=== PATIENT | female | born 1980 | race African-American/Black ===

== ENCOUNTER → 2019-04-02 | Outpatient (CLI) | payer OTHER ==
[~2019-04-02] VITALS: Ht 167.6 cm; Wt 82.6 kg
== END | disposition home or self-care (01) ==
LOC: ECT 09:53
DX: F33.2 Major depressive disorder, recurrent severe without psychotic features (principal); F39 Unspecified mood [affective] disorder; F34.1 Dysthymic disorder; E03.9 Hypothyroidism, unspecified; I10 Essential (primary) hypertension; Z79.899 Other long term (current) drug therapy; Z81.8 Family history of other mental and behavioral disorders

== ENCOUNTER 2019-04-10 08:56 | Outpatient (RCR) | payer OTHER ==
[~2019-04-10] VITALS: Ht 167.6 cm; Wt 82.6 kg
[2019-04-10] MEDS ORDERED: SUMAtriptan 6mg/0.5ml Inj SUBQ ONE (08:57)
[2019-04-10] MEDS ORDERED: Succinylcholine 20mg/ml 10ml vial ONE (08:57)
[2019-04-10] MEDS ORDERED: NS 500ML ONE (08:57)
[2019-04-10] MEDS ORDERED: Ketorolac 30mg Inj ONE (08:57)
[2019-04-10] MEDS ORDERED: Methohexital Sodium Syr 100mg/10ml IVP ONE (08:57)
[2019-04-10 08:59] VITALS: BP 134/89
[2019-04-10 09:10] VITALS: BP 164/81
[2019-04-10 09:15] VITALS: BP 127/74
[2019-04-10 09:20] VITALS: BP 122/74
[2019-04-10 09:25] VITALS: BP 124/77
[2019-04-10 09:59] VITALS: BP 134/89
[2019-04-13] MEDS ORDERED: SUMAtriptan 6mg/0.5ml Inj SUBQ ONE (06:00)
[2019-04-13] MEDS ORDERED: Succinylcholine 20mg/ml 10ml vial ONE (06:00)
[2019-04-13] MEDS ORDERED: NS 500ML ONE (06:00)
[2019-04-13] MEDS ORDERED: Ketorolac 30mg Inj ONE (06:00)
[2019-04-13] MEDS ORDERED: Methohexital Sodium Syr 100mg/10ml IVP ONE (06:00)
[2019-04-13 10:51] VITALS: BP 147/100
[2019-04-13 11:03] VITALS: BP 185/91
[2019-04-13 11:08] VITALS: BP 164/84
[2019-04-13 11:13] VITALS: BP 159/75
[2019-04-13 11:18] VITALS: BP 141/84
[2019-04-15] MEDS ORDERED: Ketorolac 30mg Inj ONE (06:00)
[2019-04-15] MEDS ORDERED: SUMAtriptan 6mg/0.5ml Inj SUBQ ONE (06:00)
[2019-04-15] MEDS ORDERED: NS 500ML ONE (06:00)
[2019-04-15] MEDS ORDERED: Methohexital Sodium Syr 100mg/10ml IVP ONE (06:00)
[2019-04-15] MEDS ORDERED: Succinylcholine 20mg/ml 10ml vial ONE (06:00)
[2019-04-15 09:39] VITALS: BP 129/87
[2019-04-15 09:50] VITALS: BP 158/88
[2019-04-15 09:55] VITALS: BP 142/65
[2019-04-15 10:00] VITALS: BP 135/83
[2019-04-15 10:05] VITALS: BP 130/75
[2019-04-17] MEDS ORDERED: Ketorolac 60mg Inj IM ONE (06:00)
[2019-04-17] MEDS ORDERED: NS 500ML ONE (06:00)
[2019-04-17] MEDS ORDERED: Succinylcholine 20mg/ml 10ml vial ONE (06:00)
[2019-04-17] MEDS ORDERED: Methohexital Sodium Syr 100mg/10ml IVP ONE (06:00)
[2019-04-17] MEDS ORDERED: SUMAtriptan 6mg/0.5ml Inj SUBQ ONE (06:00)
[2019-04-17 08:56] VITALS: BP 148/100
[2019-04-17 09:09] VITALS: BP 162/85
[2019-04-17 09:14] VITALS: BP 146/92
[2019-04-17 09:19] VITALS: BP 148/64
[2019-04-17 09:24] VITALS: BP 142/87
[2019-04-20] MEDS ORDERED: NS 500ML ONE (09:00)
[2019-04-20] MEDS ORDERED: Ketorolac 60mg Inj IM ONE (09:00)
[2019-04-20] MEDS ORDERED: Methohexital Sodium Syr 100mg/10ml IVP ONE (09:00)
[2019-04-20] MEDS ORDERED: SUMAtriptan 6mg/0.5ml Inj SUBQ ONE (09:00)
[2019-04-20] MEDS ORDERED: Succinylcholine 20mg/ml 10ml vial ONE (09:00)
[2019-04-20 09:07] VITALS: BP 137/92
[2019-04-20 09:19] VITALS: BP 148/74
[2019-04-20 09:24] VITALS: BP 144/82
[2019-04-20 09:29] VITALS: BP 134/85
[2019-04-20 09:34] VITALS: BP 133/78
[2019-04-22 09:01] VITALS: BP 146/97
[2019-04-22 09:12] VITALS: BP 164/85
[2019-04-22 09:17] VITALS: BP 147/92
[2019-04-22 09:22] VITALS: BP 143/77
[2019-04-22 09:27] VITALS: BP 140/82
[2019-04-23] MEDS ORDERED: Ketorolac 60mg Inj IM ONE (09:00)
[2019-04-23] MEDS ORDERED: Succinylcholine 20mg/ml 10ml vial ONE (09:00)
[2019-04-23] MEDS ORDERED: NS 500ML ONE (09:00)
[2019-04-23] MEDS ORDERED: Methohexital Sodium Syr 100mg/10ml IVP ONE (09:00)
[2019-04-23] MEDS ORDERED: SUMAtriptan 6mg/0.5ml Inj SUBQ ONE (09:00)
[2019-04-24 08:51] VITALS: BP 133/82
[2019-04-24 09:02] VITALS: BP 151/83
[2019-04-24 09:07] VITALS: BP 152/80
[2019-04-24 09:12] VITALS: BP 148/82
[2019-04-24 09:17] VITALS: BP 140/78
[2019-04-25] MEDS ORDERED: Ketorolac 60mg Inj IM ONE (21:51)
[2019-04-25] MEDS ORDERED: SUMAtriptan 6mg/0.5ml Inj SUBQ ONE (21:51)
[2019-04-25] MEDS ORDERED: Succinylcholine 20mg/ml 10ml vial ONE (21:51)
[2019-04-25] MEDS ORDERED: Midazolam 2mg/2ml Inj ONE (21:51)
[2019-04-25] MEDS ORDERED: Methohexital Sodium Syr 100mg/10ml IVP ONE (21:51)
[2019-04-25] MEDS ORDERED: NS 500ML ONE (21:51)
== END 2019-04-25 | disposition home or self-care (01) ==
LOC: ECT 08:56
DX: F33.2 Major depressive disorder, recurrent severe without psychotic features (principal)
CPT/HCPCS: 90870; J0330; J1885; J2250; J3030; J7040

== ENCOUNTER 2019-04-27 05:50 | Outpatient (RCR) | payer OTHER ==
[~2019-04-27] VITALS: Ht 167.6 cm; Wt 82.6 kg
[2019-04-27] MEDS ORDERED: Midazolam 2mg/2ml Inj ONE (05:51)
[2019-04-27] MEDS ORDERED: Ketorolac 60mg Inj IM ONE (05:51)
[2019-04-27] MEDS ORDERED: Succinylcholine 20mg/ml 10ml vial ONE (05:51)
[2019-04-27] MEDS ORDERED: NS 500ML ONE (05:51)
[2019-04-27] MEDS ORDERED: SUMAtriptan 6mg/0.5ml Inj SUBQ ONE (05:51)
[2019-04-27] MEDS ORDERED: Methohexital Sodium Syr 100mg/10ml IVP ONE (05:51)
[2019-04-27 09:20] VITALS: BP 133/97
[2019-04-27 09:33] VITALS: BP 164/86
[2019-04-27 09:38] VITALS: BP 145/85
[2019-04-27 09:43] VITALS: BP 138/99
[2019-04-27 09:48] VITALS: BP 144/80
[2019-04-29] MEDS ORDERED: Succinylcholine 20mg/ml 10ml vial ONE (06:00)
[2019-04-29] MEDS ORDERED: Midazolam 2mg/2ml Inj ONE (06:00)
[2019-04-29] MEDS ORDERED: Methohexital Sodium Syr 100mg/10ml IVP ONE (06:00)
[2019-04-29] MEDS ORDERED: NS 500ML ONE (06:00)
[2019-04-29] MEDS ORDERED: Ketorolac 30mg Inj ONE (06:00)
[2019-04-29] MEDS ORDERED: SUMAtriptan 6mg/0.5ml Inj SUBQ ONE (06:00)
[2019-04-29 09:19] VITALS: BP 143/90
[2019-04-29 09:35] VITALS: BP 156/89
[2019-04-29 09:40] VITALS: BP 144/86
[2019-04-29 09:45] VITALS: BP 135/85
[2019-04-29 09:50] VITALS: BP 144/77
[2019-05-01 09:47] VITALS: BP 155/89
[2019-05-01 10:00] VITALS: BP 148/79
[2019-05-01 10:05] VITALS: BP 138/76
[2019-05-01 10:10] VITALS: BP 140/77
[2019-05-01 10:15] VITALS: BP 137/85
[2019-05-04] MEDS ORDERED: Ketorolac 60mg Inj IM ONE (07:00)
[2019-05-04] MEDS ORDERED: SUMAtriptan 6mg/0.5ml Inj SUBQ ONE (07:00)
[2019-05-04] MEDS ORDERED: Methohexital Sodium Syr 100mg/10ml IVP ONE (07:00)
[2019-05-04] MEDS ORDERED: Midazolam 2mg/2ml Inj ONE (07:00)
[2019-05-04] MEDS ORDERED: NS 500ML ONE (07:00)
[2019-05-04] MEDS ORDERED: Succinylcholine 20mg/ml 10ml vial ONE (07:00)
[2019-05-04 08:45] VITALS: BP 133/86
[2019-05-04 08:56] VITALS: BP 184/97
[2019-05-04 09:01] VITALS: BP 137/72
[2019-05-04 09:06] VITALS: BP 137/74
[2019-05-04 09:11] VITALS: BP 126/85
[2019-05-06] MEDS ORDERED: Ketorolac 60mg Inj IM ONE (07:00)
[2019-05-06] MEDS ORDERED: Midazolam 2mg/2ml Inj ONE (07:00)
[2019-05-06] MEDS ORDERED: NS 500ML ONE (07:00)
[2019-05-06] MEDS ORDERED: SUMAtriptan 6mg/0.5ml Inj SUBQ ONE (07:00)
[2019-05-06] MEDS ORDERED: Succinylcholine 20mg/ml 10ml vial ONE (07:00)
[2019-05-06] MEDS ORDERED: Methohexital Sodium Syr 100mg/10ml IVP ONE (07:00)
[2019-05-06 09:25] VITALS: BP 137/91
[2019-05-06 09:36] VITALS: BP 178/93
[2019-05-06 09:41] VITALS: BP 146/91
[2019-05-06 09:46] VITALS: BP 140/96
[2019-05-06 09:51] VITALS: BP 136/75
[2019-05-08] MEDS ORDERED: Midazolam 2mg/2ml Inj ONE (09:00)
[2019-05-08] MEDS ORDERED: NS 500ML ONE (09:00)
[2019-05-08] MEDS ORDERED: Succinylcholine 20mg/ml 10ml vial ONE (09:00)
[2019-05-08] MEDS ORDERED: SUMAtriptan 6mg/0.5ml Inj SUBQ ONE (09:00)
[2019-05-08] MEDS ORDERED: Methohexital Sodium Syr 100mg/10ml IVP ONE (09:00)
[2019-05-08] MEDS ORDERED: Ketorolac 60mg Inj IM ONE (09:00)
[2019-05-08 10:06] VITALS: BP 140/86
[2019-05-08 10:20] VITALS: BP 141/80
[2019-05-08 10:25] VITALS: BP 134/74
[2019-05-08 10:30] VITALS: BP 137/77
[2019-05-08 10:35] VITALS: BP 132/77
[2019-05-11] MEDS ORDERED: Ketorolac 60mg Inj IM ONE (09:00)
[2019-05-11] MEDS ORDERED: Methohexital Sodium Syr 100mg/10ml IVP ONE (09:00)
[2019-05-11] MEDS ORDERED: Succinylcholine 20mg/ml 10ml vial ONE (09:00)
[2019-05-11] MEDS ORDERED: SUMAtriptan 6mg/0.5ml Inj SUBQ ONE (09:00)
[2019-05-11] MEDS ORDERED: NS 500ML ONE (09:00)
[2019-05-11] MEDS ORDERED: Midazolam 2mg/2ml Inj ONE (09:00)
[2019-05-11 10:49] VITALS: BP 135/100
[2019-05-11 11:03] VITALS: BP 134/87
[2019-05-11 11:08] VITALS: BP 135/89
[2019-05-11 11:13] VITALS: BP 132/78
[2019-05-11 11:18] VITALS: BP 135/81
[2019-05-13] MEDS ORDERED: Succinylcholine 20mg/ml 10ml vial ONE (06:00)
[2019-05-13] MEDS ORDERED: Ketorolac 30mg Inj ONE (06:00)
[2019-05-13] MEDS ORDERED: NS 500ML ONE (06:00)
[2019-05-13] MEDS ORDERED: SUMAtriptan 6mg/0.5ml Inj SUBQ ONE (06:00)
[2019-05-13] MEDS ORDERED: Midazolam 2mg/2ml Inj ONE (06:00)
[2019-05-13] MEDS ORDERED: Methohexital Sodium Syr 100mg/10ml IVP ONE (06:00)
[2019-05-13 10:04] VITALS: BP 141/67
[2019-05-13 10:20] VITALS: BP 139/75
[2019-05-13 10:25] VITALS: BP 130/78
[2019-05-13 10:30] VITALS: BP 135/66
[2019-05-13 10:35] VITALS: BP 134/78
[2019-05-20] MEDS ORDERED: Methohexital Sodium Syr 100mg/10ml IVP ONE (09:00)
[2019-05-20] MEDS ORDERED: Ketorolac 60mg Inj IM ONE (09:00)
[2019-05-20] MEDS ORDERED: Succinylcholine 20mg/ml 10ml vial ONE (09:00)
[2019-05-20] MEDS ORDERED: Midazolam 2mg/2ml Inj ONE (09:00)
[2019-05-20] MEDS ORDERED: NS 500ML ONE (09:00)
[2019-05-20] MEDS ORDERED: SUMAtriptan 6mg/0.5ml Inj SUBQ ONE (09:00)
[2019-05-20 11:36] VITALS: BP 128/84
[2019-05-20 11:55] VITALS: BP 137/64
[2019-05-20 12:00] VITALS: BP 129/72
[2019-05-20 12:05] VITALS: BP 129/74
[2019-05-20 12:10] VITALS: BP 132/78
== END 2019-05-26 | disposition home or self-care (01) ==
LOC: ECT 05:50
DX: F33.2 Major depressive disorder, recurrent severe without psychotic features (principal)
CPT/HCPCS: 90870; J0330; J1885; J2250; J3030; J7040

== ENCOUNTER 2019-05-27 07:29 | Outpatient (RCR) | payer OTHER ==
[~2019-05-27] VITALS: Ht 167.6 cm; Wt 82.6 kg
[2019-05-27] MEDS ORDERED: Succinylcholine 20mg/ml 10ml vial ONE ×2 (07:30)
[2019-05-27] MEDS ORDERED: Midazolam 2mg/2ml Inj ONE ×2 (07:30)
[2019-05-27] MEDS ORDERED: NS 500ML ONE ×2 (07:30)
[2019-05-27] MEDS ORDERED: Ketorolac 60mg Inj IM ONE ×2 (07:30)
[2019-05-27] MEDS ORDERED: Methohexital Sodium Syr 100mg/10ml IVP ONE ×2 (07:30)
[2019-05-27] MEDS ORDERED: SUMAtriptan 6mg/0.5ml Inj SUBQ ONE ×2 (07:30)
[2019-05-27 09:53] VITALS: BP 151/95
[2019-05-27 10:10] VITALS: BP 140/73
[2019-05-27 10:15] VITALS: BP 136/83
[2019-05-27 10:20] VITALS: BP 134/81
[2019-05-27 10:25] VITALS: BP 137/77
[2019-06-01] MEDS ORDERED: Succinylcholine 20mg/ml 10ml vial ONE (07:00)
[2019-06-01] MEDS ORDERED: Ketorolac 60mg Inj IM ONE (07:00)
[2019-06-01] MEDS ORDERED: Midazolam 2mg/2ml Inj ONE (07:00)
[2019-06-01] MEDS ORDERED: SUMAtriptan 6mg/0.5ml Inj SUBQ ONE (07:00)
[2019-06-01] MEDS ORDERED: Methohexital Sodium Syr 100mg/10ml IVP ONE (07:00)
[2019-06-01] MEDS ORDERED: NS 500ML ONE (07:00)
[2019-06-01 10:07] VITALS: BP 143/87
[2019-06-01 10:25] VITALS: BP 138/73
[2019-06-01 10:30] VITALS: BP 134/76
[2019-06-01 10:35] VITALS: BP 140/68
[2019-06-01 10:40] VITALS: BP 140/82
[2019-06-05 09:35] VITALS: BP 140/88
[2019-06-05 09:50] VITALS: BP 141/80
[2019-06-05 09:55] VITALS: BP 136/74
[2019-06-05 10:00] VITALS: BP 131/83
[2019-06-05 10:05] VITALS: BP 130/84
[2019-06-10] MEDS ORDERED: NS 500ML ONE (08:00)
[2019-06-10] MEDS ORDERED: Methohexital Sodium Syr 100mg/10ml IVP ONE (08:00)
[2019-06-10] MEDS ORDERED: Midazolam 2mg/2ml Inj ONE (08:00)
[2019-06-10] MEDS ORDERED: Ketorolac 60mg Inj IM ONE (08:00)
[2019-06-10] MEDS ORDERED: SUMAtriptan 6mg/0.5ml Inj SUBQ ONE (08:00)
[2019-06-10] MEDS ORDERED: Succinylcholine 20mg/ml 10ml vial ONE (08:00)
[2019-06-10 10:12] VITALS: BP 137/86
[2019-06-10 10:26] VITALS: BP 141/74
[2019-06-10 10:31] VITALS: BP 138/77
[2019-06-10 10:36] VITALS: BP 140/75
[2019-06-10 10:41] VITALS: BP 144/76
[2019-06-19] MEDS ORDERED: SUMAtriptan 6mg/0.5ml Inj SUBQ ONE (06:00)
[2019-06-19] MEDS ORDERED: NS 500ML ONE (06:00)
[2019-06-19] MEDS ORDERED: Midazolam 2mg/2ml Inj ONE (06:00)
[2019-06-19] MEDS ORDERED: Succinylcholine 20mg/ml 10ml vial ONE (06:00)
[2019-06-19] MEDS ORDERED: Methohexital Sodium Syr 100mg/10ml IVP ONE (06:00)
[2019-06-19] MEDS ORDERED: Ketorolac 30mg Inj ONE (06:00)
[2019-06-19 10:10] VITALS: BP 135/91
[2019-06-19 10:23] VITALS: BP 133/76
[2019-06-19 10:28] VITALS: BP 130/73
[2019-06-19 10:33] VITALS: BP 135/79
[2019-06-19 10:38] VITALS: BP 126/79
== END 2019-06-25 | disposition home or self-care (01) ==
LOC: ECT 07:29
DX: F33.2 Major depressive disorder, recurrent severe without psychotic features (principal)
CPT/HCPCS: 90870; J0330; J1885; J2250; J3030; J7040

== ENCOUNTER 2019-07-08 05:55 | Outpatient (RCR) | payer OTHER ==
[~2019-07-08] VITALS: Ht 30.5 cm; Wt 0.5 kg
[2019-07-08] MEDS ORDERED: Succinylcholine 20mg/ml 10ml vial ONE (05:56)
[2019-07-08] MEDS ORDERED: NS 500ML ONE (05:56)
[2019-07-08] MEDS ORDERED: SUMAtriptan 6mg/0.5ml Inj SUBQ ONE (05:56)
[2019-07-08] MEDS ORDERED: Methohexital Sodium Syr 100mg/10ml IVP ONE (05:56)
[2019-07-08] MEDS ORDERED: Midazolam 2mg/2ml Inj ONE (05:56)
[2019-07-08] MEDS ORDERED: Ketorolac 60mg Inj IM ONE (05:56)
[2019-07-08 11:51] VITALS: BP 136/101
[2019-07-08 12:15] VITALS: BP 142/71
[2019-07-08] MEDS ORDERED: Atropine Sulfate 0.4mg/ml inj IVP PRN (12:15)
[2019-07-08] MEDS ORDERED: Lidocaine 2% 100mg/5ml Carp IV PRN (12:15)
[2019-07-08 12:20] VITALS: BP 136/73
[2019-07-08 12:25] VITALS: BP 134/75
[2019-07-08 12:30] VITALS: BP 134/80
== END 2019-07-26 | disposition home or self-care (01) ==
LOC: ECT 05:55
DX: F33.2 Major depressive disorder, recurrent severe without psychotic features (principal)
CPT/HCPCS: 90870; J0330; J2250; J3030; J7040

== ENCOUNTER 2019-07-29 05:23 | Outpatient (RCR) | payer OTHER ==
[~2019-07-29] VITALS: Ht 167.6 cm; Wt 82.6 kg
[2019-07-29] MEDS ORDERED: Methohexital Sodium Syr 100mg/10ml IVP ONE (05:24)
[2019-07-29] MEDS ORDERED: SUMAtriptan 6mg/0.5ml Inj SUBQ ONE (05:24)
[2019-07-29] MEDS ORDERED: NS 500ML ONE (05:24)
[2019-07-29] MEDS ORDERED: Ketorolac 60mg Inj IM ONE (05:24)
[2019-07-29] MEDS ORDERED: Succinylcholine 20mg/ml 10ml vial ONE (05:24)
[2019-07-29] MEDS ORDERED: Midazolam 2mg/2ml Inj ONE (05:24)
[2019-07-29 09:44] VITALS: BP_SYST 146; BP_DIAS 74; BP_DIAS 79
[2019-07-29 10:00] VITALS: BP 158/103
[2019-07-29 10:05] VITALS: BP 146/90
[2019-07-29 10:10] VITALS: BP 136/68
[2019-07-29 10:15] VITALS: BP 127/75
[2019-08-24] MEDS ORDERED: Methohexital Sodium Syr 100mg/10ml IVP ONE (09:00)
[2019-08-24] MEDS ORDERED: Ketorolac 60mg Inj IM ONE (09:00)
[2019-08-24] MEDS ORDERED: Midazolam 2mg/2ml Inj ONE (09:00)
[2019-08-24] MEDS ORDERED: SUMAtriptan 6mg/0.5ml Inj SUBQ ONE (09:00)
[2019-08-24] MEDS ORDERED: NS 500ML ONE (09:00)
[2019-08-24] MEDS ORDERED: Succinylcholine 20mg/ml 10ml vial ONE (09:00)
[2019-08-24 11:55] VITALS: BP 150/94
[2019-08-24] MEDS ORDERED: Atropine Sulfate 0.4mg/ml inj IVP PRN (12:14)
[2019-08-24 12:15] VITALS: BP 153/94
[2019-08-24 12:20] VITALS: BP 151/88
[2019-08-24 12:25] VITALS: BP 148/76
[2019-08-24 12:30] VITALS: BP 148/70
== END 2019-08-25 | disposition home or self-care (01) ==
LOC: ECT 05:23
DX: F33.2 Major depressive disorder, recurrent severe without psychotic features (principal)
CPT/HCPCS: 90870; J0330; J2250; J3030; J7040

== ENCOUNTER 2019-09-21 05:25 | Outpatient (RCR) | payer OTHER | END 2019-09-25 | disposition home or self-care (01) | LOC: ECT 05:25 | DX: Z53.9 Procedure and treatment not carried out, unspecified reason (principal) ==

== ENCOUNTER 2019-10-07 05:23 | Outpatient (RCR) | payer OTHER ==
[~2019-10-07] VITALS: Ht 30.5 cm; Wt 0.5 kg
[2019-10-07] VITALS (7 sets, daily range): BP systolic 122–132; BP diastolic 70–84
[2019-10-07] MEDS ORDERED: NS 500ML ONE (05:24)
[2019-10-07] MEDS ORDERED: Ketorolac 60mg Inj IM ONE (05:24)
[2019-10-07] MEDS ORDERED: Succinylcholine 20mg/ml 10ml vial ONE (05:24)
[2019-10-07] MEDS ORDERED: Midazolam 2mg/2ml Inj ONE (05:24)
[2019-10-07] MEDS ORDERED: Methohexital Sodium Syr 100mg/10ml IVP ONE (05:24)
[2019-10-07] MEDS ORDERED: SUMAtriptan 6mg/0.5ml Inj SUBQ ONE (05:24)
[2019-10-07] MEDS ORDERED: Atropine Sulfate 0.4mg/ml inj IVP PRN (10:34)
[2019-10-14] VITALS (7 sets, daily range): BP systolic 136–157; BP diastolic 75–94
[2019-10-14] MEDS ORDERED: NS 500ML ONE (06:00)
[2019-10-14] MEDS ORDERED: Midazolam 2mg/2ml Inj ONE (06:00)
[2019-10-14] MEDS ORDERED: Ketorolac 60mg Inj IM ONE (06:00)
[2019-10-14] MEDS ORDERED: Succinylcholine 20mg/ml 10ml vial ONE (06:00)
[2019-10-14] MEDS ORDERED: SUMAtriptan 6mg/0.5ml Inj SUBQ ONE (06:00)
[2019-10-14] MEDS ORDERED: Methohexital Sodium Syr 100mg/10ml IVP ONE (06:00)
== END 2019-10-26 | disposition home or self-care (01) ==
LOC: ECT 05:23
DX: F33.2 Major depressive disorder, recurrent severe without psychotic features (principal)
CPT/HCPCS: 90870; J0330; J2250; J3030; J7040

== ENCOUNTER 2019-10-28 06:43 | Outpatient (RCR) | payer OTHER ==
[~2019-10-28] VITALS: Ht 30.5 cm; Wt 0.5 kg
[2019-11-06] VITALS (7 sets, daily range): BP systolic 121–139; BP diastolic 66–82
[2019-11-06] MEDS ORDERED: Succinylcholine 20mg/ml 10ml vial ONE (09:00)
[2019-11-06] MEDS ORDERED: Methohexita Syr 100mg/10ml IVP ONE (09:00)
[2019-11-06] MEDS ORDERED: SUMAtriptan 6mg/0.5ml Inj SUBQ ONE (09:00)
[2019-11-06] MEDS ORDERED: NS 500ML ONE (09:00)
[2019-11-06] MEDS ORDERED: Ketorolac 60mg Inj IM ONE (09:00)
[2019-11-06] MEDS ORDERED: Midazolam 2mg/2ml Inj ONE (09:00)
== END 2019-11-25 | disposition home or self-care (01) ==
LOC: ECT 06:43
DX: F33.2 Major depressive disorder, recurrent severe without psychotic features (principal)
CPT/HCPCS: 90870; J0330; J2250; J3030; J7040

== ENCOUNTER 2019-12-04 04:44 | Outpatient (RCR) | payer OTHER ==
[2019-11-06 10:45] VITALS: BP 121/70
== END 2019-12-26 | disposition home or self-care (01) ==
LOC: ECT 04:44
DX: Z53.9 Procedure and treatment not carried out, unspecified reason (principal)